=== PATIENT | female | born 1955 | race Caucasian/White ===

== ENCOUNTER → 2018-05-04 | Outpatient (CLI) | payer OTHER | LOC: RAD 09:55 | DX: J44.9 Chronic obstructive pulmonary disease, unspecified (principal); R91.1 Solitary pulmonary nodule ==

== ENCOUNTER → 2018-06-02 | Outpatient (CLI) | payer OTHER | LOC: CAT 09:37 | DX: R07.9 Chest pain, unspecified (principal) ==

== ENCOUNTER → 2021-03-04 | Outpatient (CLI) | payer OTHER ==
[~2021-03-04] MED LIST: ACETAMINOPHEN325 M1 PO; BREO ELLIPTA 11 EACH INH; NEURONTIN100 MG PO; NORCO5 PO; NORVASC5 M1 PO; PROAIR HFA8.5 GM INH
== END ==
LOC: CAT 10:00
PROVIDERS: ATTEND Pediatrics
DX: J98.4 Other disorders of lung (principal); R91.8 Other nonspecific abnormal finding of lung field

== ENCOUNTER 2021-03-05 06:30 | Inpatient (IN) | payer OTHER ==
[~2021-03-05] VITALS: Ht 170.2 cm; Wt 103.0 kg
[~2021-03-05 06:30] MED LIST changes: -ACETAMINOPHEN325 M1 PO; -NORCO5 PO
[2021-03-05 07:23] VITALS: BP 142/57
[2021-03-05 07:37] LABS: CALCIUM 8.6 mg/dL (8.5-10.1); CREATININE 1.2 mg/dL (0.6-1.0); POTASSIUM 4.6 mmol/L (3.5-5.1)
[2021-03-05 07:43] LABS: ALBUMIN 3.4 g/dL (3.4-5.0); TOTAL BILIRUBIN 0.4 mg/dL (0.2-1.0)
--- NOTE | 2021-03-05 14:58 | EKG ---
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
[2021-03-05 16:04] VITALS: BP 133/63
--- NOTE | 2021-03-05 18:46 | NUR ---
PT CAME UP FROM HAVING A CHEST TUBE PLACED ON THE RIGHT SIDE. PT RECEIVED FENTANLY AND VERSED IN RECOVERY. NO PAIN CONTROL ORDERS HAVE BEEN RECEIVED DR. GUNDERSON HAS BEEN PAGED WITH NO RESPONSE AT THIS TIME.
[2021-03-05 20:08] VITALS: BP 130/58
[2021-03-06] VITALS (7 sets, daily range): BP systolic 113–123; BP diastolic 54–69
--- NOTE | 2021-03-06 09:17 | NUR ---
Assumed care of pt this AM. Pt is A&O x4. Pt on 4L NC w/ rt sided chest tube to water seal & suction @ -20. Chest tube intact & no drainage present. SA/SB on the monitor. Pt c/o pain with ambulation to BSC, given PRN pain medication. Per Dr. Eubanks, d/c suction & maintain water seal. Repeat CXR @ noon today. Will continue to assess pt needs throughout the day.
[2021-03-06] MEDS ORDERED: ACETAMINOPHEN325 M1 PO (15:20)
[2021-03-06] MEDS ORDERED: NORCO5 PO (15:20)
--- NOTE | 2021-03-06 15:20 | NUR ---
Chart reveiwed and case discussed with the care team. Pt admitted with pneumo after bx of rt upper lobe mass. Her pcp is Dr. Craig Yu. She see Dr. Andrade for pulm/copd. She is normally indep with gait and does not have home o2. She is currently on 4liters with chest tube to water seal. Therapy evals requested. No dc needs are anticipated at this time;however cm to follow along should dme or hh referrals be indicated. Possible weekend dc if CT dc'd and o2 weaned off.
--- NOTE | 2021-03-09 12:06 | PATH ---
[facility] [address] [place] [address] PATHOLOGY RPT PROCEDURE Name: JULIA MOOREDRA Martines Room #: 200-I DIS IN M.R.#: [id number] Admission: 03/05/21 Date of : 51 Discharge: 03/06/21 Report #: [id number] Path Case #: [id number] [facility] Accession Number: [id number] . 01 Material submitted: . lung - RLL FORCEP TISSUE BIOPSY. Modifiers: right, lower . 02 Diagnosis: Lung, right lower lobe, forceps biopsy: - Benign alveolated lung parenchyma associated with hemorrhage, congested vessels, as well as emphysematous changes in addition to mild chronic inflammation. - Mild thickening of the tunica media of the vessels (please see comment). - Negative for vasculitis. - Negative for dysplasia or malignancy. LBQ 03/06/2021 1400 Local . 02 Comment: Examination shows fragments of alveolated lung parenchyma associated with abundant congestion and hemorrhage in addition to chronic inflammation as well as macrophages. The vessels throughout the biopsy tissue show a subtle thickening. Properly controlled [place] red special stain is performed on block A1 and shows no definitive birefringence. Therefore, arguing against amyloid. PAS with and without diastase stains is performed as well on block A1 show staining of the vessel wall. There is no evidence of vasculitis present. In addition, mild emphysematous changes are present within the alveoli. There is no dysplasia or malignancy present. (IUV/db; 03/06/2021) . 02 Electronically signed: . Korina Vasquez MD, Pathologist NPI- [id number] . 01 Gross description: . The specimen is received in formalin, labeled "Lisandra Moore, tissue biopsy RLL". Received are multiple segments of red-brown tissue measuring 0.4 x 0.4 x 0.1 cm in aggregate dimensions. The specimen is filtered and entirely submitted in cassette A1. ([facility]; 03/05/2021) QAC/QAC 03/05/2021 1606 Local . 02 Pathologist provided ICD-10: J98.4, R04.89 . 02 CPT . 610387, 385244, 873750, 488518 [place] [address] PATHOLOGY RPT PROCEDURE Name: OSCARLISANDRA Room #: 200-I DIS IN M.R.#: [id number] Admission: 03/05/21 Date of : 51 Discharge: 03/06/21 Report #: [id number] Path Case #: [id number] Specimen Comment: A courtesy copy of this report has been sent to [phone] Specimen Comment: Report sent to Performed at: [address], [place] [id number] MD Tyrone Steele MD Phone: [phone] Performed at: [address] [id number] MD Korina Vasquez MD Phone: [phone]
--- NOTE | 2021-03-09 13:55 | NUR ---
patient discharged home Tuesday. Insurance for S and S insurance called [employer] to inquire into discharge as they where in process of authorizing services. Patient dc home with home oxygen. Gave amy number, prescribing phys. Patient dc home with HH ordered but did not note it was arranged. Called patient at home to offer options for HH agency. Patient reports she does not feel she needs HH care. She reports she went to work 1/2 day today. She is checking her heart rate and oxygen rate with pulse oximetry. Patient has Dr Jacob number to call and make apt for f/u. INSURANCE [facility] sp with S[place]
== END 2021-03-06 18:15 | disposition home or self-care (01) | DRG 166 ==
LOC: PUL 06:30 → TBA 06:31 → PUL 11:30 → 2N 12:03 → PUL 12:03 → 2N 03-06 18:15
PROVIDERS: Pediatrics; ADMIT Internal Medicine; ATTEND Internal Medicine
PROC: 0BBF8ZX Excision of Right Lower Lung Lobe, Via Natural or Artificial Opening Endoscopic, Diagnostic (ICD-10-PCS; principal; 2021-03-05)
PROC: 0BD68ZX Extraction of Right Lower Lobe Bronchus, Via Natural or Artificial Opening Endoscopic, Diagnostic (ICD-10-PCS; principal; 2021-03-05)
PROC: 0W9930Z Drainage of Right Pleural Cavity with Drainage Device, Percutaneous Approach (ICD-10-PCS; principal; 2021-03-05)
PROC: 0B9F8ZX Drainage of Right Lower Lung Lobe, Via Natural or Artificial Opening Endoscopic, Diagnostic (ICD-10-PCS; principal; 2021-03-05)
DX: J93.9 Pneumothorax, unspecified (principal); J96.01 Acute respiratory failure with hypoxia; R91.8 Other nonspecific abnormal finding of lung field; J44.9 Chronic obstructive pulmonary disease, unspecified; I10 Essential (primary) hypertension; Z20.822 Contact with and (suspected) exposure to COVID-19; E66.01 Morbid (severe) obesity due to excess calories; Z68.35 Body mass index [BMI] 35.0-35.9, adult
CPT/HCPCS: 10081; 62110; 62900; 70005